=== PATIENT | male | born 2000 | race Caucasian/White ===

== ENCOUNTER 2023-03-18 13:12 | Emergency (ER) | payer OTHER ==
[2023-03-18] MEDS ORDERED: KETOROLAC TROMETHAMINE 30 MG/1 ML VIAL IM ONE (13:22)
[2023-03-18] MEDS ORDERED: FLUORESCEIN NA 1 EA STRIP OD ONE (13:23)
[2023-03-18] MEDS ORDERED: TETRACAINE 0.5% HCL 0.6ML DROPPER.BOTTLE OD ONE (13:23)
[2023-03-18 13:28] VITALS: BP 124/83; PULSE 55; RESP 19; TEMP 97.6; BMI 24.3
[2023-03-18] MEDS ORDERED: TETRACAINE 0.5% OPHTH SOLN 2 ML BOTTLE ONE (13:28)
[2023-03-18] MEDS ORDERED: KETOROLAC TROMETHAMINE 30 MG/1 ML VIAL ONE (13:29)
[2023-03-18] MEDS ORDERED: FLUORESCEIN NA 1 EA STRIP ONE (13:29)
[2023-03-18] MEDS ORDERED: ONDANSETRON *ODT* 4 MG TABLET SL ONE (14:01)
[2023-03-18] MEDS ORDERED: ONDANSETRON *ODT* 4 MG TABLET ONE (14:06)
[2023-03-18] MEDS ORDERED: ACETAMINOPHEN 325 MG TABLET (FP) PO ONE (14:28)
[2023-03-18] MEDS ORDERED: ACETAMINOPHEN 500 MG TABLET (FP) ONE (14:32)
== END 2023-03-18 16:30 | disposition home or self-care (01) ==
LOC: FER 13:12
PROC: 3E0233Z Introduction of Anti-inflammatory into Muscle, Percutaneous Approach (ICD-10-PCS; principal; 2023-03-18)
DX: S02.85XA Fracture of orbit, unspecified, initial encounter for closed fracture (principal); W01.198A Fall on same level from slipping, tripping and stumbling with subsequent striking against other object, initial encounter
CPT/HCPCS: 70450-TC; 70480-TC; 99284-25; Q0162